=== PATIENT | male | born 1995 | race Caucasian/White ===

== ENCOUNTER 2019-02-12 03:07 | Inpatient (IN) | payer SELFPAY ==
[2019-02-12] MEDS ORDERED: NORMAL SALINE 1000 ML 1,000 ML IV ONE (03:17)
--- NOTE | 2019-02-12 03:17 | ER Document Report ---
ED General - General Chief Complaint: Abdominal Pain Stated Complaint: ABDOMINAL PAIN Time Seen by Provider: 02/12/19 03:16 Notes: Patient is a 23-year-old male that presents to the emergency department for chief complaint of right lower quadrant abdominal pain. Patient reports that the pain started about 2 days ago, and has had chills and subjective fevers at home and nausea vomiting associated since then, he is a little bit of diarrhea a s well. Currently rates his pain as a 10 out of 10 describes it as severe in nature, mainly in the right lower quadrant but goes to other areas as well. He states he could not take the pain anymore so he decided come to the emergency department. He denies any chest pain, shortness of breath or difficulty breathing, denies noting any blood in the stool or in the vomit. Past Medical History: Denies chronic medical conditions Past Surgical History: Hernia repair Social History: Admits to smoking cigarettes, denies alcohol or drug use. Family History: Reviewed and noncontributory for presenting illness Allergies: Reviewed, see documented allergy list. REVIEW OF SYSTEMS: Other than noted above, the 12 point review of systems was reviewed with the patient and were negative, all pertinent findings are included in the HPI. PHYSICAL EXAMINATION: Vital signs reviewed, nursing noted reviewed. GENERAL: Patient appears rather uncomfortable on exam, and in mild to moderate distress secondary to pain HEAD: Atraumatic, normocephalic. EYES: Eyes appear normal, extraocular movements intact, sclera anicteric, conjunctiva are normal. ENT: nares patent, oropharynx clear without exudates. Moist mucous membranes. NECK: Normal range of motion, supple without lymphadenopathy LUNGS: Breath sounds clear to auscultation bilaterally and equal. No wheezes rales or rhonchi. HEART: Heart rate tachycardic, regular rhythm, no audible murmur. ABDOMEN: Soft, significant tenderness in the right lower quadrant, with positive rebound and guarding, normoactive bowel sounds. EXTREMITIES: Nontender, good range of motion, no pitting or edema. NEUROLOGICAL: No focal neurological deficits. Moves all extremities spontaneously Motor and sensory grossly intact on exam. PSYCH: Normal mood, normal affect. SKIN: Warm, Dry, normal turgor, no rashes or lesions noted on exposed skin TRAVEL OUTSIDE OF THE [place] IN LAST 30 DAYS: No - Related Data Allergies/Adverse Reactions: No Known Allergies Allergy (Unverified 02/12/19 03:38) Past Medical History - Social History Smoking Status: Current Every Day Smoker Family History: Reviewed & Not Pertinent Physical Exam - Vital signs Vitals: Temp Pulse Resp BP Pulse Ox 98.9 F 116 H 20 120/91 H 100 02/12/19 03:13 02/12/19 03:13 02/12/19 03:13 02/12/19 03:13 02/12/19 03:13 Course - Re-evaluation Re-evalutation: Patient seen and examined vital signs reviewed. Laboratory data and imaging were ordered as appropriate for the patient's presenting symptoms and complaint, with consideration of any critical or life threatening conditions that may be associated with their obtained history and exam as noted above. Patient was treated with IV fluids, Dilaudid, and Zofran Results were reviewed when available and demonstrated leukocytosis, CT of the abdomen and pelvis revealed signs of perforated appendicitis, with possible secondary small bowel obstruction, and free fluid in the abdomen The patient was re-evaluated and was pain was improved, but still was still having pain and discomfort, abdomen was still operator whiskey Evaluation was most consistent with acute appendicitis, with perforation, case was discussed with Dr. Nick who came to bedside to see the patient and will take him to the OR. Patient was agreeable with this plan of care, patient was started on IV antibiotics with Zosyn and given additional fluids *Note is created using voice recognition software and may contain spelling, syntax or grammatical errors. Laboratory 02/12/19 02/12/19 03:10 03:10 WBC 13.1 H RBC 5.55 Hgb 16.9 Hct 49.2 MCV 89 MCH 30.4 MCHC 34.3 RDW 13.5 Plt Count 228 Total Counted 100 Seg Neutrophils % Not Reportable Seg Neuts % (Manual) 87 H Band Neutrophils % 6 H Lymphocytes % Not Reportable Lymphocytes % (Manual) 5 L Monocytes % Not Reportable Monocytes % (Manual) 2 L Eosinophils % Not Reportable Eosinophils % (Manual) 0 Basophils % Not Reportable Basophils % (Manual) 0 Absolute Neutrophils Not Reportable Abs Neuts (Manual) 12.2 H Absolute Lymphocytes Not Reportable Abs Lymphs (Manual) 0.7 Absolute Monocytes Not Reportable Abs Monocytes (Manual) 0.3 Absolute Eosinophils Not Reportable Absolute Eos (Manual) 0.0 Absolute Basophils Not Reportable Abs Basophils (Manual) 0.0 Platelet Comment ADEQUATE RBC Morph Comment NORMO-CYTIC/CHROMIC Sodium 137.9 Potassium 4.4 Chloride 103 Carbon Dioxide 24 Anion Gap 11 BUN 8 Creatinine 1.15 Est GFR ( Amer) > 60 Est GFR (Non-Af Amer) > 60 Glucose 135 H Calcium 9.4 Total Bilirubin 0.9 Direct Bilirubin 0.2 Neonat Total Bilirubin Not Reportable Neonat Direct Bilirubin Not Reportable Neonat Indirect Bili Not Reportable AST 19 ALT 32 Alkaline Phosphatase 88 Total Protein 7.5 Albumin 4.7 Lipase 18.5 L Abdomen/Pelvis CT 02/12/19 03:26 IMPRESSION: Findings consistent with acute appendicitis and worrisome for perforated appendicitis. Recommend urgent surgical consultation. There is a likely secondary reactive ileus. - Vital Signs Vital signs: Temp Pulse Resp BP Pulse Ox 98.9 F 116 H 20 120/91 H 100 02/12/19 03:13 02/12/19 03:13 02/12/19 03:13 02/12/19 03:13 02/12/19 03:13 - Laboratory Result Diagrams: 02/12/19 03:10 02/12/19 03:10 Laboratory results interpreted by me: 02/12/19 02/12/19 03:10 03:10 WBC 13.1 H Seg Neuts % (Manual) 87 H Band Neutrophils % 6 H Lymphocytes % (Manual) 5 L Monocytes % (Manual) 2 L Abs Neuts (Manual) 12.2 H Glucose 135 H Lipase 18.5 L Critical Care Note - Critical Care Note Total time excluding time spent on procedures (mins): 35 Comments: Critical care time 35 minutes exclusive from separate billable procedures for a patient requiring complex medical decision making, and high potential for clinical deterioration. In a patient presenting with a acute peritonitis, and acute appendicitis with concern for perforation. Time spent obtaining history from patient or surrogate, discussions with consultants, development of treatment plan with patient or surrogate, evaluation of patient's response to treatment, examination of patient, ordering and performing treatments and interventions, ordering and review of laboratory studies, re-evaluation of patient's condition, ordering and review of radiographic studies and review of old charts Discharge - Discharge Clinical Impression: Acute appendicitis Qualifiers: Acute appendicitis type: with generalized peritonitis Appendicitis gangrene presence: unspecified whether gangrene present Appendicitis perforation presence: with perforation Appendicitis abscess presence: unspecified whether abscess present Qualified Code(s): K35.20 - Acute appendicitis with generalized peritonitis, without abscess Leukocytosis Qualifiers: Leukocytosis type: unspecified Qualified Code(s): D72.829 - Elevated white blood cell count, unspecified Condition: Serious Disposition: SAME DAY SURGERY Admitting Provider: Surgicalist - Dr. Nick Unit Admitted: OR
[2019-02-12] MEDS ORDERED: HYDROMORPHONE HCL INJ/PF 2 MG/ML AMPULE IV ONE (03:26)
[2019-02-12] MEDS ORDERED: ONDANSETRON HCL INJ/PF 4 MG/2 ML SDV IV ONE (03:26)
[2019-02-12 03:59] LABS: HEMATOCRIT 49.2 % (37.9-51.0); HEMOGLOBIN 16.9 g/dL (13.5-17.0); MEAN CORPUSCULAR HEMOGLOBIN 30.4 pg (27.0-33.4); MEAN CORPUSCULAR HGB CONC 34.3 g/dL (32.0-36.0); MEAN CORPUSCULAR VOLUME 89 fl (80-97); PLATELET COUNT 228 10^3/uL (150-450); RED BLOOD COUNT 5.55 10^6/uL (4.35-5.55); RED CELL DISTRIBUTION WIDTH 13.5 % (11.5-14.0); WHITE BLOOD COUNT 13.1 10^3/uL (4.0-10.5)
[2019-02-12 04:14] LABS: ALANINE AMINOTRANSFERASE 32 U/L (21-72); ALBUMIN 4.7 g/dL (3.5-5.0); ALKALINE PHOSPHATASE 88 U/L (38-126); ANION GAP 11 (5-19); ASPARTATE AMINO TRANSFERASE 19 U/L (17-59); BILIRUBIN,DIRECT 0.2 mg/dL (0.0-0.4); BILIRUBIN,TOTAL 0.9 mg/dL (0.2-1.3); BLOOD UREA NITROGEN 8 mg/dL (7-20); CALCIUM 9.4 mg/dL (8.4-10.2); CARBON DIOXIDE 24 mmol/L (22-30); CHLORIDE 103 mmol/L (98-107); GLUCOSE 135 mg/dL (75-110); LIPASE 18.5 U/L (23-300); POTASSIUM 4.4 mmol/L (3.6-5.0); SODIUM 137.9 mmol/L (137-145); TOTAL PROTEIN 7.5 g/dL (6.3-8.2)
[2019-02-12 04:22] LABS: ABSOLUTE LYMPHOCYTES# (MANUAL) 0.7 10^3/uL (0.5-4.7); ABSOLUTE MONOCYTES # (MANUAL) 0.3 10^3/uL (0.1-1.4); BAND NEUTROPHILS % (MANUAL) 6 % (3-5); BASOPHILS % (MANUAL) 0 % (0-2); EOSINOPHILS % (MANUAL) 0 % (0-6); LYMPHOCYTES % (MANUAL) 5 % (13-45); MONOCYTES % (MANUAL) 2 % (3-13); SEGMENTED NEUTROPHILS % (MAN) 87 % (42-78); TOTAL CELLS COUNTED 100
[2019-02-12 04:24] LABS: PLATELET COMMENT ADEQUATE; RBC MORPHOLOGY COMMENT NORMO-CYTIC/CHROMIC
[2019-02-12] MEDS ORDERED: RINGERS SOLUTION,LACTATED 1,000 ML IV ONE ×2 (04:47→05:21)
[2019-02-12] MEDS ORDERED: PIPERACILLIN/TAZOBACTAM 3.375 GM VIAL IV ONE (05:11)
--- NOTE | 2019-02-12 05:11 | RADIOLOGY REPORT (SQ) ---
CT abdomen and pelvis with contrast on 02/12/2019 at 4:37 AM CLINICAL INDICATION: Right lower quadrant pain TECHNIQUE: Multiple axial images are obtained throughout the abdomen and pelvis following the administration of IV contrast, 100 mL of Omnipaque 350 contrast was administered intravenously without complication. This exam was performed according to our departmental dose-optimization program, which includes automated exposure control, adjustment of the mA and/or kV according to patient size and/or use of iterative reconstruction technique. Total DLP is 1028.15 mGy*cm. COMPARISON: None FINDINGS: Abdomen: The lung bases are clear. The solid abdominal organs are unremarkable. There is no abdominal adenopathy. Small amount of free fluid is noted in the right paracolic gutter. There is no free air. There are some mildly prominent fluid-filled loops of small bowel. The abdominal portion of the GI tract is otherwise unremarkable. Pelvis: There is an appendicolith within the proximal appendix. There is fluid filled appendix that is dilated with the distal appendix measuring up to 1.1 cm. There is diffuse fat stranding throughout the pelvis likely centered in the right lower quadrant. There is [id number] amount of free fluid in the pelvis. There is a calcification in the right lower quadrant seen on axial image 66 and coronal image 31 that is adjacent to the appendix. This may represent an appendicolith that has perforated outside the appendix. With the degree of inflammation and fluid in the pelvis the findings are consistent with acute appendicitis and worrisome for perforated appendicitis. No abscess formation is noted. There is likely an associated reactive ileus involving small bowel. There is no pelvic adenopathy. Pelvic portion of the GI tract is otherwise unremarkable. No acute bony abnormality is noted. IMPRESSION: Findings consistent with acute appendicitis and worrisome for perforated appendicitis. Recommend urgent surgical consultation. There is a likely secondary reactive ileus.
[2019-02-12] MEDS ORDERED: FENTANYL CITRATE INJ/PF 250 MCG/5 ML AMPULE ONE (06:25)
[2019-02-12] MEDS ORDERED: LIDOCAINE 2% INJ-PF (20 MG/ML) 10 ML AMPUL ONE (06:26)
[2019-02-12] MEDS ORDERED: MIDAZOLAM 2 MG/2 ML INJ ONE (06:26)
[2019-02-12] MEDS ORDERED: PROPOFOL INJ 200 MG/20 ML VIAL IV ONE (06:26)
[2019-02-12] MEDS ORDERED: DEXMEDETOMIDINE INJ 80 MCG/20 ML VIAL IV ONE (06:26)
[2019-02-12] MEDS ORDERED: BUPIVACAINE HCL 0.25 % INJ/PF (2.5 MG/1 ML) 30 ML VIAL ONE (06:44)
[2019-02-12] MEDS ORDERED: ACETAMINOPHEN 1,000 MG/100 ML RTUPB IV ONE (07:07)
[2019-02-12] MEDS ORDERED: CEFAZOLIN INJ 1 GM VIAL ONE (07:25)
[2019-02-12] MEDS ORDERED: DIPHENHYDRAMINE HCL 50 MG/ML VIAL IV PRN (07:43)
[2019-02-12] MEDS ORDERED: ONDANSETRON HCL INJ/PF 4 MG/2 ML SDV IV PRN (07:43)
[2019-02-12] MEDS ORDERED: FENTANYL CITRATE INJ/PF 100 MCG/2 ML AMPUL IV PRN ×3 (07:43)
[2019-02-12] MEDS ORDERED: PROMETHAZINE HCL INJ 25 MG/1 ML VIAL IV PRN ×2 (07:43)
[2019-02-12] MEDS ORDERED: MEPERIDINE HCL/PF INJ 25 MG/1 ML DISP.SYRIN IV PRN (07:43)
[2019-02-12] MEDS ORDERED: HYDROMORPHONE HCL INJ/PF 2 MG/ML AMPULE ONE (07:46)
--- NOTE | 2019-02-12 08:13 | Operative Report ---
Nonrecallable Operative Report DATE OF SURGERY: 02/12/19 PREOPERATIVE DIAGNOSIS: perforated appendicitis POSTOPERATIVE DIAGNOSIS: perforated appendicitis OPERATION: laparoscopic appendectomy SURGEON: MALLY MACIAS ANESTHESIA: GA TISSUE REMOVED OR ALTERED: appendix COMPLICATIONS: none ESTIMATED BLOOD LOSS: 10cc INTRAOPERATIVE FINDINGS: perforated appendicitis PROCEDURE: see dictation
[2019-02-12] MEDS ORDERED: ONDANSETRON 4 MG TAB.RAPDIS PO PRN (08:14)
--- NOTE | 2019-02-12 08:50 | HISTORY AND PHYSICAL E ---
History and Physical NAME: MALLORY MONTOYA : 1995 AGE: 23Y ADMITTED: 02/12/2019 ROOM: ED06 CHIEF COMPLAINT: Abdominal pains. HISTORY OF PRESENT ILLNESS: This is a 23-year-old male who started complaining of right lower quadrant pain 2 days ago. This was later associated with nausea, vomiting, and some diarrhea. He also complained of fever with some chills. He came to ED, where a CT scan of the abdomen revealed a perforated acute appendicitis. PAST MEDICAL HISTORY: Denies any chronic medical conditions. PAST SURGICAL HISTORY: Hernia repair. SOCIAL HISTORY: He smokes a pack a day. Denies alcohol or drug use. FAMILY HISTORY: Noncontributory. Denies diabetes mellitus. ALLERGIES: Reviewed, see documented allergy list. REVIEW OF SYSTEMS: As in HPI. The rest of the systems are unremarkable. PHYSICAL EXAMINATION: GENERAL: Well-developed, well-nourished, 23-year-old male, alert and oriented, complaining of abdominal pains. HEENT: Neck is supple. Head is atraumatic. Eyes: [place] conjunctivae. ENT: Nares patent and oropharynx without exudate. LUNGS: Clear to auscultation bilaterally. HEART: Tachycardia, regular rhythm. ABDOMEN: Soft, with tenderness in the right lower quadrant with rebound. Less tender in the right upper quadrant than the left lower quadrant. EXTREMITIES: No edema. NEUROLOGIC: No focal neurologic deficit. PSYCHIATRIC: Appropriate affect. SKIN: Warm, dry. IMPRESSION: Acute appendicitis with perforation. PLANS: Hydrate, start IV antibiotics. Consent for laparoscopic appendectomy, possible open, with risks of bleeding, injury to the bowel and surrounding structures, and cardiopulmonary complications was obtained from the patient. DICTATING PHYSICIAN: LILIA HIRSCH M.D. [id number] PHY#: [id number] ID: [id number] JOB#: [id number] ACCT: [id number] cc:Waldo ROMANO MD, M.D >
--- NOTE | 2019-02-12 09:14 | OPERATIVE REPORT E ---
Operative Report NAME: MALLORY MONTOYA : 1995 AGE: 23Y DATE OF SURGERY: 02/12/2019 ROOM: ED06 PREOPERATIVE DIAGNOSIS: PERFORATED APPENDICITIS. POSTOPERATIVE DIAGNOSIS: PERFORATED APPENDICITIS. OPERATION: Laparoscopic appendectomy. SURGEON: MALLY MACIAS M.D. PROCEDURE: Patient was brought to the operating room in awake, alert, and stable condition and placed on the operating room table in supine position, induced under general anesthesia and intubated. The abdomen was prepped and draped in usual sterile manner for the procedure. A Veress needle was placed into the umbilicus and the abdomen was insufflated with 6 liters of CO2 gas. An infraumbilical 10 mm incision was made with a 10 blade and a 10 mm port placed in the abdominal cavity. Intraabdominal visualization revealed no evidence of a Veress needle or trocar injury. A left lower quadrant 12 mm port placed under direct vision and a suprapubic 5 mm port. Intraoperative visualization revealed a large amount of purulent fluid in the pelvis as well as in the right pericolic gutter and above the right lobe of the liver. This was all suctioned free with the suction cytogenetics technologist. The appendix was then identified. It was involved in a mild phlegmon in the right lower quadrant which was easily broken up with the suction cytogenetics technologist. Once this was freed up we placed the appendix on traction, took down the mesoappendix with the Harmonic scalpel and then came across the base of the appendix on the cecum with one firing of the Endo JUAN M stapler with a blue load. The appendix was placed in an EndoBag and removed through the left lower quadrant port site. The right lower quadrant, right upper quadrant, and pelvis were copiously irrigated with normal saline and suctioned dry. When the effluent was clear and hemostasis was noted to be intact we reduced the pneumoperitoneum and removed the ports. We closed the infraumbilical fascial defect with 0-Vicryl. We closed the left lower quadrant fascial defect with 0-Vicryl. We closed all 3 skin incisions with 4-0 Vicryl, Steri-Strips completed the procedure. Estimated blood loss less than 10 mL. Sponge and needle counts were correct x2. The patient was awakened in the operating room, extubated, and transferred to Recovery in stable condition, no complications. DICTATING PHYSICIAN: MALLY MACIAS M.D. [id number] PHY#: [id number] ID: [id number] JOB#: [id number] ACCT: [id number] cc:MALLY MACIAS M.D. >
[2019-02-12] MEDS: DEXTROSE 5%-LACTATED RINGERS 1,000 ML IV PRN (09:48)
[2019-02-12] MEDS ORDERED: AMPICILLIN SODIUM/SULBACTAM NA 3 GM in NORMAL SALINE 100 ML IV SCH (11:00)
[2019-02-12] MEDS: FAMOTIDINE INJ/PF 20 MG/2 ML SDV IV SCH ×2 (11:31→22:22)
[2019-02-12] MEDS: AMPICILLIN SODIUM/SULBACTAM NA 3 GM in NORMAL SALINE 100 ML IV SCH ×2 (11:31→17:27)
[2019-02-12 12:31] LABS: APPEARANCE,URINE CLEAR; BILIRUBIN,URINE NEGATIVE (NEGATIVE); COLOR,URINE YELLOW; GLUCOSE, URINE NEGATIVE (NEGATIVE); KETONES,URINE NEGATIVE (NEGATIVE); LEUKOCYTE ESTERASE,URINE NEGATIVE (NEGATIVE); NITRITE,URINE NEGATIVE (NEGATIVE); PROTEIN,URINE NEGATIVE (NEGATIVE); URINE SPECIFIC GRAVITY 1.041; UROBILINOGEN,URINE NEGATIVE mg/dL (<2.0)
[2019-02-12] MEDS ORDERED: ROCURONIUM BROMIDE INJ 50 MG/5 ML VIAL IV ONE (14:14)
[2019-02-12] MEDS ORDERED: KETOROLAC TROMETHAMINE 60 MG/2 ML SDV ONE (14:14)
[2019-02-12] MEDS ORDERED: ONDANSETRON HCL INJ/PF 4 MG/2 ML SDV ONE (14:14)
[2019-02-12] MEDS ORDERED: SUCCINYLCHOLINE CHLORIDE INJ 200 MG/10 ML VIAL ONE (14:14)
[2019-02-12] MEDS ORDERED: GLYCOPYRROLATE 1 MG/5 ML VIAL ONE (14:14)
[2019-02-12] MEDS ORDERED: NEOSTIGMINE METHYLSULFATE 10 MG/10 ML VIAL ONE (14:14)
[2019-02-12] MEDS ORDERED: METOCLOPRAMIDE HCL INJ/PF 10 MG/2 ML SDV ONE (14:14)
[2019-02-12] MEDS ORDERED: DEXAMETHASONE SOD PHOSPHATE INJ 4 MG/1 ML VIAL ONE (14:14)
[2019-02-12] MEDS: MORPHINE SULFATE 10 MG/ML INJ IV PRN ×2 (17:22→22:21)
[2019-02-13] MEDS: AMPICILLIN SODIUM/SULBACTAM NA 3 GM in NORMAL SALINE 100 ML IV SCH ×3 (01:39→18:14)
[2019-02-13] MEDS: MORPHINE SULFATE 10 MG/ML INJ IV PRN ×5 (02:45→23:11)
[2019-02-13 06:57] LABS: ABSOLUTE LYMPHOCYTES (AUTO) 1.3 10^3/uL (0.5-4.7); ABSOLUTE MONOCYTES (AUTO) 0.8 10^3/uL (0.1-1.4); ABSOLUTE NEUT (AUTO) 10.1 10^3/uL (1.7-8.2); BASOPHILS % (AUTO) 0.4 % (0-2); EOSINOPHILS % (AUTO) 0.3 % (0-6); HEMATOCRIT 37.1 % (37.9-51.0); LYMPHOCYTES % (AUTO) 10.3 % (13-45); MEAN CORPUSCULAR HGB CONC 34.1 g/dL (32.0-36.0); MEAN CORPUSCULAR VOLUME 88 fl (80-97); MONOCYTES % (AUTO) 6.8 % (3-13); PLATELET COUNT 184 10^3/uL (150-450); RED BLOOD COUNT 4.22 10^6/uL (4.35-5.55); RED CELL DISTRIBUTION WIDTH 13.5 % (11.5-14.0); SEGMENTED NEUTROPHILS % (AUTO) 82.2 % (42-78); TOTAL CELLS COUNTED % (AUTO) 100 %; WHITE BLOOD COUNT 12.3 10^3/uL (4.0-10.5)
[2019-02-13 07:02] LABS: HEMOGLOBIN 12.6 g/dL (13.5-17.0)
[2019-02-13 07:28] LABS: ANION GAP 6 (5-19); BLOOD UREA NITROGEN 10 mg/dL (7-20); CALCIUM 8.5 mg/dL (8.4-10.2); CARBON DIOXIDE 25 mmol/L (22-30); CHLORIDE 106 mmol/L (98-107); GLUCOSE 114 mg/dL (75-110); POTASSIUM 4.3 mmol/L (3.6-5.0); SODIUM 136.7 mmol/L (137-145)
[2019-02-13] MEDS: DEXTROSE 5%-LACTATED RINGERS 1,000 ML IV PRN (08:18)
[2019-02-13] MEDS: FAMOTIDINE INJ/PF 20 MG/2 ML SDV IV SCH ×2 (09:08→23:06)
--- NOTE | 2019-02-13 15:18 | PDOC PROGRESS REPORT ---
Subjective Progress Note for:: 02/13/19 Subjective:: some incisional pains Passed flatus this am Reason For Visit: ACUTE PERFORATED APPENDICITIS WITH PHLEGMON Physical Exam Vital Signs: Temp Pulse Resp BP Pulse Ox 99.1 F 86 16 111/55 L 97 02/13/19 12:00 02/13/19 12:00 02/13/19 12:00 02/13/19 12:00 02/13/19 12:00 Intake & Output 02/12/19 02/13/19 02/14/19 06:59 06:59 06:59 Intake Total 1999 6674 880 Output Total 1410 Balance 1999 5216 880 Weight 97.5 kg 89.5 kg Exam: abd is soft with mild tenderness primarily along incision sites Results Laboratory Results: 02/13/19 05:45 02/13/19 05:45 02/13/19 02/13/19 05:45 05:45 WBC 12.3 H RBC 4.22 L Hgb 12.6 L D Hct 37.1 L MCV 88 MCH 30.0 MCHC 34.1 RDW 13.5 Plt Count 184 Seg Neutrophils % 82.2 H Lymphocytes % 10.3 L Monocytes % 6.8 Eosinophils % 0.3 Basophils % 0.4 Absolute Neutrophils 10.1 H Absolute Lymphocytes 1.3 Absolute Monocytes 0.8 Absolute Eosinophils 0.0 Absolute Basophils 0.0 Sodium 136.7 L Potassium 4.3 Chloride 106 Carbon Dioxide 25 Anion Gap 6 BUN 10 Creatinine 0.82 Est GFR ( Amer) > 60 Est GFR (Non-Af Amer) > 60 Glucose 114 H Calcium 8.5 Impressions: Abdomen/Pelvis CT 02/12/19 03:26 IMPRESSION: Findings consistent with acute appendicitis and worrisome for perforated appendicitis. Recommend urgent surgical consultation. There is a likely secondary reactive ileus. Assessment & Plan - Diagnosis (1) Acute appendicitis Qualifiers: Acute appendicitis type: with generalized peritonitis Appendicitis gangrene presence: unspecified whether gangrene present Appendicitis perforation presence: with perforation Appendicitis abscess presence: unspecified whether abscess present Qualified Code(s): K35.20 - Acute appendicitis with generalized peritonitis, without abscess Is this a current diagnosis for this admission?: Yes (2) Leukocytosis Qualifiers: Leukocytosis type: unspecified Qualified Code(s): D72.829 - Elevated white blood cell count, unspecified Is this a current diagnosis for this admission?: Yes - Time Time Spent with patient: 15-24 minutes - Inpatient Certification Medical Necessity: Need for IV Antibiotics - Plan Summary Plan Summary: Start clears and advance as tolerated Continue IV antibiotics x 24 hrs
[2019-02-13] MEDS: ACETAMINOPHEN 325 MG TABLET PO PRN (17:00)
[2019-02-13] MEDS: KETOROLAC TROMETHAMINE INJ/PF 30 MG/1 ML SDV IV SCH ×2 (18:14→23:06)
[2019-02-14] MEDS: AMPICILLIN SODIUM/SULBACTAM NA 3 GM in NORMAL SALINE 100 ML IV SCH ×2 (01:44→09:47)
[2019-02-14] MEDS: MORPHINE SULFATE 10 MG/ML INJ IV PRN ×3 (04:04→15:32)
[2019-02-14 05:09] LABS: ABSOLUTE EOSINOPHILS # (AUTO) 0.2 10^3/uL (0.0-0.6); ABSOLUTE LYMPHOCYTES (AUTO) 1.1 10^3/uL (0.5-4.7); ABSOLUTE MONOCYTES (AUTO) 0.8 10^3/uL (0.1-1.4); ABSOLUTE NEUT (AUTO) 6.4 10^3/uL (1.7-8.2); BASOPHILS % (AUTO) 0.6 % (0-2); EOSINOPHILS % (AUTO) 1.8 % (0-6); HEMATOCRIT 36.4 % (37.9-51.0); HEMOGLOBIN 12.5 g/dL (13.5-17.0); LYMPHOCYTES % (AUTO) 13.2 % (13-45); MEAN CORPUSCULAR HEMOGLOBIN 30.5 pg (27.0-33.4); MEAN CORPUSCULAR HGB CONC 34.3 g/dL (32.0-36.0); MEAN CORPUSCULAR VOLUME 89 fl (80-97); MONOCYTES % (AUTO) 9.9 % (3-13); PLATELET COUNT 190 10^3/uL (150-450); RED CELL DISTRIBUTION WIDTH 13.5 % (11.5-14.0); SEGMENTED NEUTROPHILS % (AUTO) 74.5 % (42-78); TOTAL CELLS COUNTED % (AUTO) 100 %; WHITE BLOOD COUNT 8.5 10^3/uL (4.0-10.5)
[2019-02-14] MEDS: KETOROLAC TROMETHAMINE INJ/PF 30 MG/1 ML SDV IV SCH ×2 (05:20→12:01)
[2019-02-14] MEDS: FAMOTIDINE INJ/PF 20 MG/2 ML SDV IV SCH (09:47)
[2019-02-14] MEDS: DEXTROSE 5%-LACTATED RINGERS 1,000 ML IV PRN (13:11)
[2019-02-14] MEDS: ACETAMINOPHEN 325 MG TABLET PO PRN (13:16)
[2019-02-14 16:55] VITALS: BP 144/68
--- NOTE | 2019-02-14 21:54 | DISCHARGE SUMMARY E ---
Discharge Summary NAME: MALLORY MONTOYA : 1995 AGE: 23Y ADMITTED: 02/12/2019 DISCHARGED: 02/14/2019 FINAL DIAGNOSIS: Acute appendicitis. PROCEDURE DONE: On 02/12/19, laparoscopic appendectomy, surgeon Dr. Julien. HOSPITAL COURSE: This is a 23-year-old male with right lower quadrant pain for about 2 days then went to the ED where a CT scan of the abdomen revealed acute appendicitis with significant surrounding inflammation. The patient subsequently underwent laparoscopic appendectomy done by Dr. Julien for acute appendicitis. Postoperatively the patient did fairly well and continued IV antibiotics for 2 days. His white count on 02/14/19 came down to normal. He was able to tolerate his regular diet and passing some flatus. He was then discharged improved on 02/14/19. DISCHARGE INSTRUCTIONS: The patient given a prescription for Percocet 5/325 mg 1 q.6 hours p.r.n. for pain x10 doses. He will be seen in the surgical clinic in 2 weeks. He was advised not to do any lifting more than 15 pounds until seen in the clinic in 2 weeks. DICTATING PHYSICIAN: LILIA HIRSCH M.D. [id number] PHY#: [id number] ID: [id number] JOB#: [id number] ACCT: [id number] cc:LILIA HIRSCH M.D. >
== END 2019-02-14 17:35 | disposition home or self-care (01) | DRG 340 ==
LOC: ER 03:07 → OBSVTOIN 05:33 → EH 05:33 → 4S 09:34
PROVIDERS: ADMIT Surgery; ATTEND Surgery
PROC: 0DTJ4ZZ Resection of Appendix, Percutaneous Endoscopic Approach (ICD-10-PCS; principal; 2019-02-12 07:00)
DX: K35.33 Acute appendicitis with perforation, localized peritonitis, and gangrene, with abscess (principal)
CPT/HCPCS: 36415; 74177; 80048; 80053; 81001; 83690; 840; 85025; 87040; 88304; 94799; J0131; J0295; J0330; J0690; J1100; J1170; J1885; J2250; J2270; J2405; J2543; J2704; J2710; J2765; J3010; J3490; J7030; J7050; J7120; J7121; S0028

== ENCOUNTER 2019-11-29 01:29 | Emergency (ER) | payer OTHER ==
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
[2019-11-29] MEDS ORDERED: LORAZEPAM INJ 2 MG/1 ML VIAL IM ONE (02:15)
[2019-11-29 03:26] LABS: ABSOLUTE EOSINOPHILS # (AUTO) 0.1 10^3/uL (0.0-0.6); ABSOLUTE LYMPHOCYTES (AUTO) 1.5 10^3/uL (0.5-4.7); ABSOLUTE MONOCYTES (AUTO) 0.9 10^3/uL (0.1-1.4); BASOPHILS % (AUTO) 0.4 % (0-2); EOSINOPHILS % (AUTO) 1.2 % (0-6); HEMATOCRIT 42.9 % (37.9-51.0); HEMOGLOBIN 15.1 g/dL (13.5-17.0); LYMPHOCYTES % (AUTO) 15.5 % (13-45); MEAN CORPUSCULAR HEMOGLOBIN 31.5 pg (27.0-33.4); MEAN CORPUSCULAR HGB CONC 35.2 g/dL (32.0-36.0); MEAN CORPUSCULAR VOLUME 90 fl (80-97); MONOCYTES % (AUTO) 9.3 % (3-13); PLATELET COUNT 196 10^3/uL (150-450); RED BLOOD COUNT 4.78 10^6/uL (4.35-5.55); RED CELL DISTRIBUTION WIDTH 13.7 % (11.5-14.0); SEGMENTED NEUTROPHILS % (AUTO) 73.6 % (42-78); TOTAL CELLS COUNTED % (AUTO) 100 %; WHITE BLOOD COUNT 9.5 10^3/uL (4.0-10.5)
[2019-11-29 03:44] LABS: ALBUMIN 4.7 g/dL (3.5-5.0); ALKALINE PHOSPHATASE 83 U/L (38-126); ANION GAP 10 (5-19); ASPARTATE AMINO TRANSFERASE 104 U/L (17-59); BILIRUBIN,TOTAL 1.1 mg/dL (0.2-1.3); BLOOD UREA NITROGEN 22 mg/dL (7-20); CALCIUM 9.3 mg/dL (8.4-10.2); CARBON DIOXIDE 24 mmol/L (22-30); CHLORIDE 106 mmol/L (98-107); GLUCOSE 102 mg/dL (75-110); POTASSIUM 3.7 mmol/L (3.6-5.0); TOTAL PROTEIN 7.4 g/dL (6.3-8.2)
[2019-11-29 03:53] LABS: ACETAMINOPHEN < 10 ug/mL (10-30); ALCOHOL < 10 mg/dL (NONE DETECTED); SALICYLATE < 1.0 mg/dL (2.0-20.0)
[2019-11-29 03:54] LABS: APPEARANCE,URINE CLEAR; BILIRUBIN,URINE NEGATIVE (NEGATIVE); COLOR,URINE YELLOW; GLUCOSE, URINE NEGATIVE (NEGATIVE); KETONES,URINE 80 mg/dL (NEGATIVE); LEUKOCYTE ESTERASE,URINE NEGATIVE (NEGATIVE); NITRITE,URINE NEGATIVE (NEGATIVE); PROTEIN,URINE 30 mg/dL (NEGATIVE); URINE SPECIFIC GRAVITY 1.032; UROBILINOGEN,URINE NEGATIVE mg/dL (<2.0)
[2019-11-29 04:16] LABS: URINE BARBITURATES SCREEN NEGATIVE; URINE BENZODIAZEPINES SCREEN NEGATIVE; URINE COCAINE SCREEN NEGATIVE; URINE METHADONE SCREEN NEGATIVE; URINE PHENCYCLIDINE SCREEN NEGATIVE
[2019-11-29 04:22] LABS: URINE MARIJUANA (THC) SCREEN UNCONFIRMED POSITIVE
--- NOTE | 2019-11-29 07:35 | EKG REPORT ---
SEVERITY:- ABNORMAL ECG - SINUS ARRHYTHMIA, RATE 59-100 NONSPECIFIC INTRAVENTRICULAR CONDUCTION DELAY : Confirmed by: Juan Manuel Peters MD 29-Nov-2019 07:34:20
--- NOTE | 2019-11-29 07:38 | EKG REPORT ---
SEVERITY:- DEFECTIVE ECG - INCOMPLETE ANALYSIS DUE TO MISSING DATA IN PRECORDIAL LEAD(S) FAST SINUS ARRHYTHMIA, RATE 78-115 LEFT AXIS DEVIATION , IVCD BORDERLINE PROLONGED QT INTERVAL EARLY PRECORDIAAL TRANSITION ? [facility] : Confirmed by: Juan Manuel Peters MD 29-Nov-2019 07:37:21
--- NOTE | 2019-11-29 14:25 | ER Document Report ---
Doctor's Note Notes: 11/29/19 14:24 PHYSICAL EXAMINATION: GENERAL: Appears well, healthy, well-nourished, no acute distress. LUNGS: Equal breath sounds bilaterally and clear to auscultation. No wheezes rales or rhonchi. CARDIOVASCULAR: S1-S2, regular rate, regular rhythm. Radial pulses 2+, normal. ABDOMEN: Normoactive bowel sounds. Soft, nontender, no guarding, no rebound tenderness, and no masses palpated. PSYCH: Not very talkative; withdrawn. Patient states that he feels better, but still feels a little suicidal. Does not express how he will commit suicide. Patient states that he wants to be tested for STDs. Gonorrhea and chlamydia sent. Wet mount sent. 11/29/19 15:13 I spoke with the lab because the trichomonas cannot be performed. They state that there was no saline in the tube. Microbiology reported to me that they did not see any white cells. I have a low suspicion for trichomonas. [facility] has cleared the patient for transfer to [facility] facility. Follow-up precautions were given. Verbal discharge instructions were given to the patient. They verbalized understanding. They are stable for discharge.
[2019-11-29 14:53] LABS: YEAST (WET MOUNT) NO YEAST SEEN
[2019-11-29 14:54] LABS: T.VAGINALIS (WET MOUNT) COULD NOT PERFORM; WBCS (WET MOUNT) NO WBCS SEEN
[2019-11-29 15:06] VITALS: BP 124/70
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
[2019-11-29 16:23] LABS: CHLAM PCR NOT DETECTED (NOT DETECT)
== END 2019-11-29 15:30 | disposition home or self-care (01) ==
LOC: ER 01:29
DX: F32.9 Major depressive disorder, single episode, unspecified (principal); F41.9 Anxiety disorder, unspecified; T43.296A Underdosing of other antidepressants, initial encounter; T43.596A Underdosing of other antipsychotics and neuroleptics, initial encounter; Z91.120 Patient's intentional underdosing of medication regimen due to financial hardship; Z91.14 Patient's other noncompliance with medication regimen; R45.851 Suicidal ideations; F15.10 Other stimulant abuse, uncomplicated; F17.200 Nicotine dependence, unspecified, uncomplicated; T14.8XXA Other injury of unspecified body region, initial encounter; X58.XXXA Exposure to other specified factors, initial encounter; E86.0 Dehydration; R00.0 Tachycardia, unspecified; I10 Essential (primary) hypertension; Z59.0 Homelessness; Z20.2 Contact with and (suspected) exposure to infections with a predominantly sexual mode of transmission; Z63.8 Other specified problems related to primary support group
CPT/HCPCS: 93005; 99285; 96372; 36415; 87210; 80307 ×4; 85025; 80053; 81001; 87491; 87591; 93010; J2060